=== PATIENT | female | born 1960 | race Caucasian/White ===

== ENCOUNTER 2017-05-11 10:32 | Inpatient (IN) ==
[2017-05-11] MEDS ORDERED: ACETAMINOPHEN 500 MG TABLET PO STA (10:55)
[2017-05-11] MEDS ORDERED: SODIUM CHLORIDE 0.9% 1,000 ML IV STA (10:55)
[2017-05-11] MEDS ORDERED: ACETAMINOPHEN 500 MG TABLET ONE (11:25)
[2017-05-11 11:29] LABS: Basophils % 0.3 % (0.0-0.8); Hematocrit 35.2 VOL% (35.7-47.0); Hemoglobin 11.8 GM/DL (12.0-16.0); Immature Granulocytes % 0.5 %; Lymphocytes # 0.5 10*3/uL (1.4-4.0); Lymphocytes % 3.2 % (21.3-54.2); Mean Corpuscular HGB Conc 33.5 GM/DL (32-36); Mean Corpuscular Hemoglobin 30 PG (27-34); Mean Corpuscular Volume 90.5 FL (87-102); Mean Platelet Volume 11.2 FL (9.6-12.0); Monocytes # 1.2 10*3/uL (0.11-0.8); Neutrophils # 13.3 10*3/uL (1.4-7.4); Platelet Count 184 T/CUMM (130-400); Red Blood Count 3.89 MC/CUMM (3.8-5.5); Red Cell Distribution Width 12.8 % (9.3-17.3); White Blood Count 15.1 T/CUMM (4-12)
[2017-05-11 11:30] LABS: Immature Granulocytes Absolute 0.07 #
[2017-05-11 11:44] LABS: Apearance,Urine CLOUDY (Clear); Bacteria,Urine Many /HPF (Few); Bilirubin,Urine Negative (Negative); Blood, Urine Large mg/dL (Negative); Glucose,Urine (UA) Negative (Negative); Ketones,Urine Negative (Negative); Mucus,Urine Occasional /LPF (Occasional); Nitrite,Urine Positive (Negative); Protein,Urine 30 MG/DL; RBC,Urine 16 /HPF (0-4); Urine Color Yellow (Yellow); WBC,Urine 481 /HPF (0-6)
[2017-05-11 11:49] LABS: Band Neutrophils 6 % (0-10); Lymphocytes 4 % (20-55); Platelet Estimate Adequate; Segmented Neutrophils 80 % (50-85); Total Cells Counted 100
[2017-05-11] MEDS ORDERED: cefTRIAXone 1,000 MG in SODIUM CHLORIDE 0.9% 100 ML IV STA (11:50)
[2017-05-11 11:51] LABS: Alanine Aminotransferase 14 U/L (13-56); Albumin 3.1 G/DL (3.4-5.0); Alkaline Phosphatase 105 U/L (45-117); Amylase 35 U/L (25-115); Aspartate Amino Transferase 16 U/L (0-37); Blood Urea Nitrogen 9 MG/DL (7-18); Calcium 7.9 MG/DL (8.5-10.1); Glucose 146 MG/DL (74-106); Osmolality,Calculated 261.8 MOS/KG (273-304); Potassium 3.8 MMOL/L (3.5-5.1); Sodium 130 MMOL/L (136-145); Total Protein 6.6 G/DL (6.4-8.3)
[2017-05-11] MEDS ORDERED: cefTRIAXone 1,000 MG VIAL ONE (12:01)
[2017-05-11 12:56] LABS: INR 0.9; Partial Thromboplastin Time 29.6 SECS (0-40)
[2017-05-11] MEDS ORDERED: LEVOFLOXACIN INJ 100 ML IV ONE (13:07)
[2017-05-11] MEDS: LEVOFLOXACIN INJ 500 MG in PREMIX 1 EACH IV SCH (13:15)
[2017-05-11] MEDS ORDERED: DOCUSATE SODIUM 100 MG CAPSULE PO PRN (14:18)
[2017-05-11] MEDS ORDERED: ONDANSETRON 4 MG/2 ML VIAL IV PRN (14:18)
[2017-05-11] MEDS ORDERED: LACTULOSE 20 GM/30 ML UDCUP PO PRN (14:18)
[2017-05-11] MEDS ORDERED: ACETAMINOPHEN 325 MG TABLET PO PRN (14:18)
[2017-05-11] MEDS ORDERED: SODIUM CHLORIDE 0.9% 700 ML IV ONE (14:21)
[2017-05-11] MEDS: DIGOXIN 0.125 MG TABLET PO SCH (20:38)
[2017-05-11] MEDS: METOPROLOL SUCCINATE XL 25 MG TABLET PO SCH (20:38)
[2017-05-11] MEDS: SODIUM CHLORIDE 0.9% 1,000 ML IV SCH (22:15)
[2017-05-12] MEDS: ACETAMINOPHEN 325 MG TABLET PO PRN ×2 (03:49→13:36)
[2017-05-12] MEDS: SODIUM CHLORIDE 0.9% 1,000 ML IV SCH ×3 (04:35→23:00)
[2017-05-12 05:00] LABS: Basophils % 0.2 % (0.0-0.8); Eosinophils % 0.2 % (0.00-10.9); Hematocrit 29.3 VOL% (35.7-47.0); Hemoglobin 9.7 GM/DL (12.0-16.0); Immature Granulocytes % 0.5 %; Immature Granulocytes Absolute 0.07 #; Lymphocytes # 2.4 10*3/uL (1.4-4.0); Lymphocytes % 18.8 % (21.3-54.2); Mean Corpuscular HGB Conc 33.1 GM/DL (32-36); Mean Corpuscular Hemoglobin 31 PG (27-34); Mean Corpuscular Volume 92.1 FL (87-102); Mean Platelet Volume 11.6 FL (9.6-12.0); Monocytes # 1.8 10*3/uL (0.11-0.8); Monocytes % 14.2 % (1.7-12.7); Neutrophils # 8.4 10*3/uL (1.4-7.4); Neutrophils % 66.1 % (38.7-73.9); Platelet Count 177 T/CUMM (130-400); Red Blood Count 3.18 MC/CUMM (3.8-5.5); Red Cell Distribution Width 12.9 % (9.3-17.3); White Blood Count 12.8 T/CUMM (4-12)
[2017-05-12 05:35] LABS: Risk Ratio 2.15; VLDL CHOLESTEROL 12.2 MG/DL
[2017-05-12] MEDS: METOPROLOL SUCCINATE XL 25 MG TABLET PO SCH (09:52)
[2017-05-12] MEDS: DIGOXIN 0.125 MG TABLET PO SCH (09:52)
[2017-05-12] MEDS: VENLAFAXINE 75 MG TABLET PO SCH (09:53)
[2017-05-12] MEDS: ASPIRIN CHEW 81 MG TABLET PO SCH (09:53)
[2017-05-12] MEDS: LEVOFLOXACIN INJ 500 MG in PREMIX 1 EACH IV SCH (09:53)
[2017-05-12] MEDS: PANTOPRAZOLE 40 MG TABLET PO SCH (09:53)
[2017-05-12] MEDS: cefTRIAXone 2,000 MG in SYRINGE 1 EACH IV SCH (09:54)
[2017-05-12 13:09] LABS: Calcium 7.3 MG/DL (8.5-10.1); Potassium 3.7 MMOL/L (3.5-5.1)
[2017-05-13] MEDS: ACETAMINOPHEN 325 MG TABLET PO PRN (00:10)
[2017-05-13] MEDS: SODIUM CHLORIDE 0.9% 1,000 ML IV SCH (05:48)
[2017-05-13 06:20] LABS: Basophils % 0.3 % (0.0-0.8); Eosinophils % 0.4 % (0.00-10.9); Hematocrit 27.5 VOL% (35.7-47.0); Immature Granulocytes % 0.5 %; Immature Granulocytes Absolute 0.05 #; Lymphocytes # 2.6 10*3/uL (1.4-4.0); Lymphocytes % 27.9 % (21.3-54.2); Mean Corpuscular HGB Conc 32.7 GM/DL (32-36); Mean Corpuscular Hemoglobin 30 PG (27-34); Mean Corpuscular Volume 92.3 FL (87-102); Mean Platelet Volume 11.7 FL (9.6-12.0); Monocytes % 11.1 % (1.7-12.7); Neutrophils # 5.6 10*3/uL (1.4-7.4); Neutrophils % 59.8 % (38.7-73.9); Platelet Count 190 T/CUMM (130-400); Red Blood Count 2.98 MC/CUMM (3.8-5.5); Red Cell Distribution Width 12.8 % (9.3-17.3); White Blood Count 9.3 T/CUMM (4-12)
[2017-05-13 06:59] LABS: Calcium 7.5 MG/DL (8.5-10.1); Potassium 3.8 MMOL/L (3.5-5.1)
[2017-05-13] MEDS: DIGOXIN 0.125 MG TABLET PO SCH (09:02)
[2017-05-13] MEDS: ASPIRIN CHEW 81 MG TABLET PO SCH (09:02)
[2017-05-13] MEDS: THYROID 60 MG TABLET PO SCH (09:02)
[2017-05-13] MEDS: METOPROLOL SUCCINATE XL 25 MG TABLET PO SCH (09:02)
[2017-05-13] MEDS: PANTOPRAZOLE 40 MG TABLET PO SCH (09:03)
[2017-05-13] MEDS: VENLAFAXINE 75 MG TABLET PO SCH (09:03)
[2017-05-13] MEDS: LEVOFLOXACIN INJ 500 MG in PREMIX 1 EACH IV SCH (09:03)
[2017-05-13] MEDS: cefTRIAXone 2,000 MG in SYRINGE 1 EACH IV SCH (09:03)
[2017-05-14] MEDS: ACETAMINOPHEN 325 MG TABLET PO PRN (02:25)
[2017-05-14 06:10] LABS: Basophils % 0.3 % (0.0-0.8); Eosinophils # 0.1 10*3/uL (0.0-0.87); Eosinophils % 1.6 % (0.00-10.9); Hematocrit 28.1 VOL% (35.7-47.0); Hemoglobin 9.2 GM/DL (12.0-16.0); Immature Granulocytes % 0.6 %; Immature Granulocytes Absolute 0.04 #; Lymphocytes % 29.6 % (21.3-54.2); Mean Corpuscular HGB Conc 32.7 GM/DL (32-36); Mean Corpuscular Hemoglobin 30 PG (27-34); Mean Corpuscular Volume 92.7 FL (87-102); Mean Platelet Volume 11.1 FL (9.6-12.0); Monocytes # 0.6 10*3/uL (0.11-0.8); Monocytes % 8.7 % (1.7-12.7); Neutrophils % 59.2 % (38.7-73.9); Platelet Count 217 T/CUMM (130-400); Red Blood Count 3.03 MC/CUMM (3.8-5.5); Red Cell Distribution Width 12.7 % (9.3-17.3); White Blood Count 6.8 T/CUMM (4-12)
[2017-05-14 06:14] LABS: Basophils % 0.3 % (0.0-0.8); Eosinophils # 0.1 10*3/uL (0.0-0.87); Eosinophils % 1.6 % (0.00-10.9); Hematocrit 27.5 VOL% (35.7-47.0); Hemoglobin 9.2 GM/DL (12.0-16.0); Immature Granulocytes % 0.6 %; Immature Granulocytes Absolute 0.04 #; Lymphocytes # 2.1 10*3/uL (1.4-4.0); Lymphocytes % 31.2 % (21.3-54.2); Mean Corpuscular HGB Conc 33.5 GM/DL (32-36); Mean Corpuscular Hemoglobin 31 PG (27-34); Mean Corpuscular Volume 91.4 FL (87-102); Mean Platelet Volume 11.4 FL (9.6-12.0); Monocytes # 0.5 10*3/uL (0.11-0.8); Monocytes % 7.6 % (1.7-12.7); Neutrophils # 3.9 10*3/uL (1.4-7.4); Neutrophils % 58.7 % (38.7-73.9); Platelet Count 238 T/CUMM (130-400); Red Blood Count 3.01 MC/CUMM (3.8-5.5); Red Cell Distribution Width 12.6 % (9.3-17.3); White Blood Count 6.7 T/CUMM (4-12)
[2017-05-14 06:45] LABS: Calcium 8.1 MG/DL (8.5-10.1); Osmolality,Calculated 279.1 MOS/KG (273-304); Potassium 3.8 MMOL/L (3.5-5.1)
[2017-05-14 06:49] LABS: Calcium 8.1 MG/DL (8.5-10.1); Ferritin 124.7 ng/ml (8-252); Potassium 3.9 MMOL/L (3.5-5.1)
[2017-05-14 07:20] LABS: Folate 13.5 NG/ML (5.4-24.0); Vitamin B12 561 PG/ML (211-911)
[2017-05-14 07:23] LABS: Sedimentation Rate-Westergren 102 MM/HR (0-30)
[2017-05-14] MEDS ORDERED: CIPROFLOXACIN INJ 400 MG in PREMIX 1 EACH IV SCH (08:00)
[2017-05-14 08:34] VITALS: BP 116/64
[2017-05-14] MEDS: METOPROLOL SUCCINATE XL 25 MG TABLET PO SCH (09:12)
[2017-05-14] MEDS: VENLAFAXINE 75 MG TABLET PO SCH (09:12)
[2017-05-14] MEDS: THYROID 60 MG TABLET PO SCH (09:12)
[2017-05-14] MEDS: DIGOXIN 0.125 MG TABLET PO SCH (09:12)
[2017-05-14] MEDS: PANTOPRAZOLE 40 MG TABLET PO SCH (09:13)
[2017-05-14] MEDS: ASPIRIN CHEW 81 MG TABLET PO SCH (09:13)
[2017-05-15 10:43] LABS: Hemoglobin A1 (Alkaline) 97.2 % (96.5-98.5); Hemoglobin A2 (Alkaline) 2.8 % (1.5-3.5)
== END 2017-05-14 11:29 | disposition home or self-care (01) | DRG 872 ==
LOC: N.ED 10:32 → N.EDINP 13:49 → N.2E 15:41
PROVIDERS: ADMIT Internal Medicine; ATTEND Internal Medicine